=== PATIENT | female | born 2000 | race Caucasian/White ===

== ENCOUNTER → 2023-08-04 08:22 | Outpatient (REF) | payer BC, SELFPAY ==
[2023-08-04 12:14] LABS: % Basophils 1.1 % (0-2); % Immature Granulocytes 0.2 % (0-0.5); % Lymphocytes 21.4 % (20.5-51.1); % Neutrophils 62.3 % (42.2-75.2); Absolute Basophils 0.1 10^3/uL (0-0.2); Absolute Eosinophils 0.2 10^3/uL (0-0.7); Absolute Lymphocytes 1.1 10^3/uL (1.2-3.4); Absolute Monocytes 0.6 10^3/uL (0.1-0.6); Absolute Neutrophils 3.3 10^3/uL (1.4-6.5); Mean Corp Hgb Conc. 32.5 g/dL (33.0-37.0); Mean Corpuscular Hgb 27.5 pg (27.0-31.0); Mean Corpuscular Volume 84.6 fL (81.0-99.0); Nucleated Red Blood Cells % 0 %; Platelet Count 249 10^3/uL (130-400); Red Blood Cell Count 4.73 10^6/uL (4.20-5.40); Red Cell Dist. Width 13.2 % (11.5-14.5); White Blood Cell Count 5.3 10^3/uL (4.8-10.8)
[2023-08-04 12:30] LABS: ALT (SGPT) < 10 U/L (0-35); AST (SGOT) 24 U/L (14-36); Albumin 4.7 g/dl (3.5-5.0); Alkaline Phosphatase 50 U/L (38-126); Blood Urea Nitrogen 9 mg/dl (7-17); Calcium 9.8 mg/dl (8.4-10.2); Carbon Dioxide 23 mmol/L (22-30); Chloride 103 mmol/L (98-107); Glucose 99 mg/dl (70-99); HDL Cholesterol 83 mg/dl; LDL Cholesterol, Calculated 57 mg/dl; Potassium 4.2 mmol/L (3.5-5.1); Sodium 138 mmol/L (135-145); Total Bilirubin 0.5 mg/dl (0.2-1.3); Total Cholesterol 156 mg/dl (50-199); Total Protein 7.4 g/dl (6.3-8.2); Triglyceride 81 mg/dl (10-149); Very Low Density Lipoprotein 16 mg/dl (0-30); eGFR > 60.00
[2023-08-04 13:04] LABS: TSH Reflex To Free T4 1.34 uIU/ml (0.47-4.68)
== END ==
LOC: HWLAB 08:22
PROVIDERS: ATTENDING PHYSICIAN Internal Medicine
DX: Z00.00 Encounter for general adult medical examination without abnormal findings (principal)
CPT/HCPCS: 36415; 80053; 80061; 84443; 85025

== ENCOUNTER → 2024-07-06 06:58 | Outpatient (REF) | payer BC, SELFPAY ==
[2024-07-06 10:08] LABS: % Basophils 2.1 % (0-2); % Eosinophils 4.8 % (0-6); % Immature Granulocytes 0.2 % (0-0.5); % Lymphocytes 33.7 % (20.5-51.1); % Monocytes 5.7 % (1.7-9.3); % Neutrophils 53.5 % (42.2-75.2); Absolute Basophils 0.1 10^3/uL (0-0.2); Absolute Eosinophils 0.2 10^3/uL (0-0.7); Absolute Lymphocytes 1.4 10^3/uL (1.2-3.4); Absolute Monocytes 0.2 10^3/uL (0.1-0.6); Absolute Neutrophils 2.3 10^3/uL (1.4-6.5); Hematocrit 38.2 % (37.0-47.0); Hemoglobin 12.2 g/dL (12.0-16.0); Mean Corp Hgb Conc. 31.9 g/dL (33.0-37.0); Mean Corpuscular Hgb 26.9 pg (27.0-31.0); Mean Corpuscular Volume 84.3 fL (81.0-99.0); Mean Platelet Volume 10.8 fL (7.4-10.4); Nucleated Red Blood Cells % 0 %; Platelet Count 333 10^3/uL (130-400); Red Blood Cell Count 4.53 10^6/uL (4.20-5.40); Red Cell Dist. Width 13.5 % (11.5-14.5); White Blood Cell Count 4.2 10^3/uL (4.8-10.8)
[2024-07-06 10:17] LABS: Erythrocyte Sed Rate 4 mm/hour (0-20)
[2024-07-06 11:09] LABS: ALT (SGPT) 14 U/L (0-35); AST (SGOT) 25 U/L (14-36); Albumin 4.7 g/dl (3.5-5.0); Alkaline Phosphatase 47 U/L (38-126); Blood Urea Nitrogen 7 mg/dl (7-17); Calcium 9.1 mg/dl (8.4-10.2); Carbon Dioxide 27 mmol/L (22-30); Chloride 104 mmol/L (98-107); Glucose 93 mg/dl (70-99); Potassium 4.1 mmol/L (3.5-5.1); Sodium 141 mmol/L (135-145); Total Bilirubin 0.4 mg/dl (0.2-1.3); Total Protein 6.9 g/dl (6.3-8.2); eGFR > 60.00
[2024-07-06 11:58] LABS: C-Reactive Protein < 5.00 mg/L (0.0-10.00)
[2024-07-06 12:16] LABS: Vitamin D, 25-OH*** 20.7 ng/mL (30-80)
[2024-07-06 13:40] LABS: Rheumatoid Agglutinin Less Than 10 IU (<10 IU)
[2024-07-07 19:54] LABS: HLA-B27 Negative (Negative)
[2024-07-07 23:23] LABS: ANA, IgG Reflex to HEp-2 None Detected (None Detected)
[2024-07-08 02:32] LABS: CCP Antibody IgG/IgA 3 Units (0-19)
== END ==
LOC: HWLAB 06:58
PROVIDERS: ATTENDING PHYSICIAN Student in an Organized Health Care Education/Training Program; FAMILY PHYSICIAN Internal Medicine
DX: M25.60 Stiffness of unspecified joint, not elsewhere classified (principal); M54.2 Cervicalgia; M54.50 Low back pain, unspecified; M79.641 Pain in right hand; Z82.61 Family history of arthritis; Z83.79 Family history of other diseases of the digestive system
CPT/HCPCS: 36415; 72040; 72202; 73120; 80053; 82306; 85025; 85652; 86038; 86140; 86200; 86430; 86812

== ENCOUNTER 2025-02-28 09:42 | Emergency (ER) | payer BC, SELFPAY ==
[2025-02-28 09:47] VITALS: BP 123/90
[2025-02-28 10:13] LABS: Hematocrit 36.5 % (37.0-47.0); Hemoglobin 12.2 g/dL (12.0-16.0); Mean Corp Hgb Conc. 33.4 g/dL (33.0-37.0); Mean Corpuscular Volume 79.7 fL (81.0-99.0); Nucleated Red Blood Cells % 0 %; Platelet Count 312 10^3/uL (130-400); Red Cell Dist. Width 13.6 % (11.5-14.5)
[2025-02-28 10:38] LABS: HCG, Serum Qualitative Screen Positive
[2025-02-28 11:02] LABS: ALT (SGPT) 14 U/L (0-35); AST (SGOT) 20 U/L (14-36); Albumin 4.7 g/dl (3.5-5.0); Alkaline Phosphatase 43 U/L (38-126); Blood Urea Nitrogen 4 mg/dl (7-17); Calcium 9.6 mg/dl (8.4-10.2); Carbon Dioxide 24 mmol/L (22-30); Chloride 102 mmol/L (98-107); Glucose 102 mg/dl (70-99); Lipase 170 U/L (23-300); Potassium 3.6 mmol/L (3.5-5.1); Sodium 136 mmol/L (135-145); Total Protein 7.7 g/dl (6.3-8.2); eGFR > 60.00
--- NOTE | 2025-02-28 11:53 | ED.GENMED ---
History of Present Illness
General
Chief Complaint: Abdominal Symptoms
Source: patient
Time Seen by Provider: 02/28/25 11:44
History of Present Illness
History of Present Illness:
24-year-old female presents to the emergency room after being seen at [facility] urgent care for nausea vomiting. Patient has been experiencing nausea vomiting for the past 4 days or so. Symptoms are worse in the morning. Yesterday in particular was
significant. She was able to get much down. This morning she was able to keep down some fluids. She has some upper abdominal discomfort from retching. Patient was found to be at urgent care. This is her first . Patient does
endorse vaping and using medical marijuana. She denies alcohol use. Patient denies any lower abdominal discomfort.
Phy Exam
Physical Exam
Physical Exam:
General: Awake, Alert, Oriented X3. No acute distress.
Vitals: unremarkable
Head: Atraumatic
Eyes: Pupils equal, EOMI
Throat: Airway intact, no exudates, dry mucosa
Neck: Trachea midline
Lungs: Clear and equal b/l
Heart: Regular rate, no murmurs
Abd: Soft, Nontender, No pulsatile mass
Neuro: Nonfocal
Skin: Warm, dry, no rash
Extremities: pulses equal b/l, no edema
Course
Orders/Labs/Results
Orders:
Orders
02/28/25 09:52
Test Result ONCE
02/28/25 10:04
Comprehensive Metabolic Panel Urgent
HCG, Serum Qualitative Screen Urgent
Lipase Urgent
02/28/25 10:05
Beta HCG Quantitative Urgent
Is this a screen?: No
Complete Blood Count/With Diff Urgent
02/28/25 11:50
0.9% Sodium Chloride 1000 ml [Nss] 1,000 ml IV BOLUS
02/28/25 11:52
Electrocardiogram (*1) Urgent
Reason for Study: QTc Monitoring
EKG- Treatment ONCE
Ondansetron Injectable [Zofran] 4 mg IV NOW STA
02/28/25 12:29
Add On- LAB Urgent
Tests Added?: quantitative hcg serum
Abnormal Lab Results
02/28/25 02/28/25
10:04 10:05
Hct 36.5 L %
(37.0-47.0)
MCV 79.7 L fL
(81.0-99.0)
MCH 26.6 L pg
(27.0-31.0)
Absolute Neuts (auto) 7.6 H 10^3/uL
(1.4-6.5)
Neutrophils % 80.0 H %
(42.2-75.2)
Lymphocytes % 12.1 L %
(20.5-51.1)
BUN 4 L mg/dl
(7-17)
Creatinine 0.5 L mg/dL
(0.6-1.0)
Glucose 102 H mg/dl
(70-99)
02/28/25 10:05
02/28/25 10:04
Vital Signs
Initial and Last Documented VS:
Initial Vital Signs
Temp Pulse Resp BP Pulse Ox
98.9 F 89 16 123/90 99
02/28/25 09:47 02/28/25 09:47 02/28/25 09:47 02/28/25 09:47 02/28/25 09:47
Last Documented Vital Signs
Temp Pulse Resp BP Pulse Ox
98.9 F 89 16 123/90 99
02/28/25 09:47 02/28/25 09:47 02/28/25 09:47 02/28/25 09:47 02/28/25 11:56
MDM/Problems Addressed
Differential Diagnosis Includes:
Viral illness, vomiting related to , electrolyte abnormality, dehydration
MDM/Problems Addressed:
Patient presents after having nausea vomiting for this few days. She was sent from urgent care. She received IV fluids here. Her labs show no significant electrolyte abnormality. Her test is confirmed to be positive here. She has no
vaginal bleeding or significant pelvic pain to suggest a acute problem with her . No imaging necessary at this time. Patient stable to follow-up with [facility] as an outpatient. Prescription for Diclegis sent to the pharmacy.
*Pulse Oximetry
SaO2: 99
Oxygen Mode of Delivery: Room air
Patient hypoxic: no
*Critical Care Note
Total Time (30-74mins, 75-104mins- exclusive of procedures): Not Applicable
ED Attending Note
-
Portions of this chart may have been created with voice recognition software.� Occasional wrong word or��sound alike� substitutions may have occurred due to the inherent limitations of voice recognition software.
Discharge Plan
Departure
Patient Disposition: Home (Routine Discharge)
Date of Disposition: 02/28/25
Time of Disposition: 13:18
Patient with high blood pressure during this ER visit?: No
Condition: Good
Discharge Problem:
Nausea & vomiting,
Instructions: Dehydration, Adult (DC), Nausea and Vomiting, Adult (DC)
Prescriptions:
New
ondansetron 4 mg tablet,disintegrating
4 mg PO Q8H PRN (Reason: nausea and vomiting) Qty: 20 0RF
doxylamine-pyridoxine (vit B6) [Diclegis] 10-10 mg tablet,delayed release (DR/EC)
2 tab PO HS Qty: 60 0RF
Discontinued
ondansetron 4 MG tablet,disintegrating
4 mg PO TIDPRN PRN (Reason: nausea/vomiting) Qty: 6 0RF
No Action
norethindrone-e.estradiol-iron [Rosalia Fe 1.5/30 (28)] 1 EACH tablet
1 ea PO DAILY
escitalopram oxalate 20 MG tablet
20 mg PO DAILY
cephalexin 500 mg capsule
500 mg PO BID 5 Days Qty: 10 0RF
Referrals:
Elmer Coy I., DO [Family Provider, Internal Medicine]
Yara Garcia, DO [Active, Gynecology]
Stand Alone Forms: Return to Work
Activity Restrictions/Additional Instructions:
Call [facility] to get a ob appointment. The first line treatment for the nausea of
Interventions
Interventions:
*Risk Screen - Suicide Last Done: 02/28/25 12:33
*General Assessment Last Done: 02/28/25 12:33
*Neglect/Abuse Screening Last Done: 02/28/25 12:33
*ED COVID-19 Vaccine History Last Done: 02/28/25 12:33
*ED Influenza Vaccine History Last Done: 02/28/25 12:33
[facility] Fall Risk Assessment Tool Last Done: 02/28/25 12:33
*Nursing Disposition Last Done: 02/28/25 13:52
HI-Ajaphp-Cruoslrixw Assessment Last Done: 02/28/25 12:33
Discharge Date and Time
Discharge Date/Time: 02/28/25 13:53
Print Language: BAHRAINI
[2025-02-28] MEDS: ZOFRAN 4 MG IV (12:20)
[2025-02-28] MEDS: NSS 1000 IV (12:20)
== END 2025-02-28 13:53 | disposition home or self-care (01) ==
LOC: EMR 09:42
PROVIDERS: EMERGENCY PHYSICIAN Emergency Medicine; FAMILY PHYSICIAN Internal Medicine
DX: O21.9 Vomiting of pregnancy, unspecified (principal); O99.331 Smoking (tobacco) complicating pregnancy, first trimester; Z3A.00 Weeks of gestation of pregnancy not specified; Z79.899 Other long term (current) drug therapy
CPT/HCPCS: 96374; 96361; 99284; 80053; 83690; 84702; 84703; 85025; 93005

== ENCOUNTER 2025-03-05 12:53 | Observation (INO) | payer BC, SELFPAY ==
[2025-03-05 07:38] VITALS: BP 155/78
--- NOTE | 2025-03-05 08:18 | ED.GENMED ---
History of Present Illness
<Ramos Bazzi PA-C - Last Filed: 03/05/25 13:49>
General
Chief Complaint: Problems
Time Seen by Provider: 03/05/25 08:05
History of Present Illness
History of Present Illness:
24-year-old female, G1, P0 currently 6 weeks gestational age, presents to the emergency department for evaluation of intractable vomiting. Was seen here last week for the same symptoms and given Zofran and Diclegis. She states these medications
were helping however she was then advised by her primary care physician to avoid the Zofran due to risk of defects. Had blood-tinged vomitus this morning well. Denies any lower abdominal pain or vaginal discharge/bleeding
Review of Systems
<Ramos Bazzi PA-C - Last Filed: 03/05/25 13:49>
Review of Systems
Allergies reviewed?: Yes
All Other Systems: ROS reviewed and negative except as documented in HPI and ROS
Phy Exam
<Ramos Bazzi PA-C - Last Filed: 03/05/25 13:49>
Physical Exam
Physical Exam:
GEN: Well appearing, NAD, WDWN
HEENT: Oral mucosa moist, no scleral icterus
Cardiac: Regular rate
Lung: No respiratory distress, no tachypnea
MSK: No gross deformity or injuries
Skin: Good color, no pallor or jaundice, no rashes
Neuro: AO x3, moves all extremities freely
Psych: Calm, cooperative
Course
<Ramos Bazzi PA-C - Last Filed: 03/05/25 13:49>
Orders/Labs/Results
Orders:
Orders
03/05/25 08:13
Dextrose 5%/0.45%Sodchl 500 ml [D5/0.45%NaCl] 500 ml IV 500 mls/hr
Lactated Ringers [Lr] 1,000 ml IV BOLUS
03/05/25 08:14
Complete Blood Count/No Diff Urgent
Comprehensive Metabolic Panel Urgent
03/05/25 08:26
Electrocardiogram (*1) Urgent
Reason for Study: Chest Pain
EKG- Treatment ONCE
03/05/25 08:50
Acetaminophen 1000MG/100Ml [Ofirmev] 1,000 mg in 100 ml IV ONCE
Acetaminophen IV Indication:: ED Narcotic Naive Pt-ONCE
03/05/25 08:51
Metoclopramide [Reglan] 10 mg IV NOW STA
CR Chest - 2 Views Urgent
Comment:
Reason For Exam: chest pain/back pain/vomiting
03/05/25 11:59
Pantoprazole [Protonix IV] 40 mg IV NOW STA
03/05/25 12:21
Admit/Transfer Patient As Directed
Co-Sign Provider:
Level of Care: Observation services
Assign to:: Medical/Surgical
Physician / Group: irina
Diagnosis: intractable vomiting
PRN Pain Medication Management As Directed
May give lesser potent ordered pain med per pt: Yes
preference::
Protocol:: Medication orders for pain may be administered in a
manner that supports deferring to patient preference
when the pt is:
- Requesting an ordered lesser potent pain medication.
Least to most potent pain medications are defined
as: acetaminophen < NSAID < tramadol < opioids
(morphine, oxycodone, hydromorphone).
- Requesting a lesser dose of the same medication IF
ORDERED.
- Requesting a less intrusive route of administration
if both routes are prescribed by the provider (PO <
IV).
03/05/25 12:22
Code Status As Directed
Resuscitation Status: Full Code
03/05/25 12:26
Consult COMMERCIAL COLLECTIONS SPECIALIST [COMMERCIAL COLLECTIONS SPECIALIST CONSULT] Routine
Consulting Provider: Ya Hassan
Was physician already notified: Yes
03/05/25 12:30
US Pelvis W Transvag Combined Urgent
Comment:
Reason For Exam: verify Viability
03/05/25 12:49
Echo 2D MMode Color/Doppler Routine
Reason for Study: heart murmur
Abnormal Lab Results
03/05/25
08:14
WBC 11.1 H 10^3/uL
(4.8-10.8)
MCV 80.9 L fL
(81.0-99.0)
MPV 10.8 H fL
(7.4-10.4)
Glucose 117 H mg/dl
(70-99)
Total Protein 8.3 H g/dl
(6.3-8.2)
Albumin 5.1 H g/dl
(3.5-5.0)
03/05/25 08:14
03/05/25 08:14
Vital Signs
Initial and Last Documented VS:
Initial Vital Signs
Temp Pulse Resp BP Pulse Ox
98 F 79 16 155/78 98
03/05/25 07:38 03/05/25 07:38 03/05/25 07:38 03/05/25 07:38 03/05/25 07:38
Last Documented Vital Signs
Temp Pulse Resp BP Pulse Ox
98 F 89 16 128/88 99
03/05/25 07:38 03/05/25 12:00 03/05/25 12:00 03/05/25 12:00 03/05/25 12:00
Information
Weeks gestation: Weeks: (6)
Location: N/A
<Trae Jordan MD - Last Filed: 03/05/25 12:56>
Orders/Labs/Results
Orders:
Orders
03/05/25 08:13
Dextrose 5%/0.45%Sodchl 500 ml [D5/0.45%NaCl] 500 ml IV 500 mls/hr
Lactated Ringers [Lr] 1,000 ml IV BOLUS
03/05/25 08:14
Complete Blood Count/No Diff Urgent
Comprehensive Metabolic Panel Urgent
03/05/25 08:26
Electrocardiogram (*1) Urgent
Reason for Study: Chest Pain
EKG- Treatment ONCE
03/05/25 08:50
Acetaminophen 1000MG/100Ml [Ofirmev] 1,000 mg in 100 ml IV ONCE
Acetaminophen IV Indication:: ED Narcotic Naive Pt-ONCE
03/05/25 08:51
Metoclopramide [Reglan] 10 mg IV NOW STA
CR Chest - 2 Views Urgent
Comment:
Reason For Exam: chest pain/back pain/vomiting
03/05/25 11:59
Pantoprazole [Protonix IV] 40 mg IV NOW STA
03/05/25 12:21
Admit/Transfer Patient As Directed
Co-Sign Provider:
Level of Care: Observation services
Assign to:: Medical/Surgical
Physician / Group: irina
Diagnosis: intractable vomiting
PRN Pain Medication Management As Directed
May give lesser potent ordered pain med per pt: Yes
preference::
Protocol:: Medication orders for pain may be administered in a
manner that supports deferring to patient preference
when the pt is:
- Requesting an ordered lesser potent pain medication.
Least to most potent pain medications are defined
as: acetaminophen < NSAID < tramadol < opioids
(morphine, oxycodone, hydromorphone).
- Requesting a lesser dose of the same medication IF
ORDERED.
- Requesting a less intrusive route of administration
if both routes are prescribed by the provider (PO <
IV).
03/05/25 12:22
Code Status As Directed
Resuscitation Status: Full Code
03/05/25 12:26
Consult COMMERCIAL COLLECTIONS SPECIALIST [COMMERCIAL COLLECTIONS SPECIALIST CONSULT] Routine
Consulting Provider: Ya Hassan
Was physician already notified: Yes
03/05/25 12:30
US Pelvis W Transvag Combined Urgent
Comment:
Reason For Exam: verify Viability
03/05/25 12:49
Echo 2D MMode Color/Doppler Routine
Reason for Study: heart murmur
Abnormal Lab Results
03/05/25
08:14
WBC 11.1 H 10^3/uL
(4.8-10.8)
MCV 80.9 L fL
(81.0-99.0)
MPV 10.8 H fL
(7.4-10.4)
Glucose 117 H mg/dl
(70-99)
Total Protein 8.3 H g/dl
(6.3-8.2)
Albumin 5.1 H g/dl
(3.5-5.0)
03/05/25 08:14
03/05/25 08:14
Vital Signs
Initial and Last Documented VS:
Initial Vital Signs
Temp Pulse Resp BP Pulse Ox
98 F 79 16 155/78 98
03/05/25 07:38 03/05/25 07:38 03/05/25 07:38 03/05/25 07:38 03/05/25 07:38
Last Documented Vital Signs
Temp Pulse Resp BP Pulse Ox
98 F 89 16 128/88 99
03/05/25 07:38 03/05/25 12:00 03/05/25 12:00 03/05/25 12:00 03/05/25 12:00
<Ramos Bazzi PA-C - Last Filed: 03/05/25 13:49>
MDM/Problems Addressed
MDM/Problems Addressed:
Concerning the patient has blood-tinged emesis and persistent chest and upper back pain after drinking, and this suggest a possible esophageal injury. She has no pneumomediastinum noted on chest x-ray concerning for esophageal rupture. Given this
finding and her persistent nausea and difficulty tolerating p.o. we will admit for continued IV hydration
<Ramos Bazzi PA-C - Last Filed: 03/05/25 13:49>
*Pulse Oximetry
SaO2: 98
Oxygen Mode of Delivery: Room air
Patient hypoxic: no
*Critical Care Note
Total Time (30-74mins, 75-104mins- exclusive of procedures): Not Applicable
ED Attending Note
<Ramos Bazzi PA-C - Last Filed: 03/05/25 13:49>
-
Portions of this chart may have been created with voice recognition software.� Occasional wrong word or��sound alike� substitutions may have occurred due to the inherent limitations of voice recognition software.
<Trae Jordan MD - Last Filed: 03/05/25 12:56>
ED Attending Note
Patient seen and examined by attending physician: Yes
ED Attending Note:
I have seen and evaluated the patient with a [id number] encounter. I have spoken to the advance practicer provider and involved in the medical history, the physical exam, medical decision making.
Evaluation and management service: agree unless noted differently below.
Results interpretation: agree unless noted differently below.
Focused HPI: 24-year-old female with history as noted who is currently 6 weeks G1, P0 presents for evaluation of nausea and vomiting, chest pain. Patient reports that she has been vomiting for the past week and that it has been unremitting
and she has had difficulty tolerating p.o. fluids or food. She says she started to develop some central chest pain. They had some scant hematemesis. Mild pain in the epigastrium. Came to the ER for assessment. She is [facility] see [facility] but her initial appointment is not until March. No vaginal bleeding or discharge or any other complaints noted.
Physical exam: Awake and alert, not in distress during my assessment. Hypertensive but otherwise normal vitals. Abdomen soft, minimally tender in the epigastrium. Mucous membranes slightly dry.
Medical Decision Makin-year-old female presents with nausea and vomiting in early �started to develop some chest pain and scant hematemesis likely Meenu-Marroquin tear. Labs here are significant for normal hemoglobin, chemistry no
clinically significant abnormalities. Chest x-ray no pneumomediastinum or other acute abnormalities. Her EKG shows sinus rhythm. Plan to admit for continued management of hyperemesis gravidarum. Ultrasound to confirm IUP. DAYNA discussed with
hospitalist for admission.
Discharge Plan
Departure
Patient Disposition: Admit
Date of Disposition: 03/05/25
Time of Disposition: 12:00
Admit to: Med/Surg
Presentation/result/management discussed w/ accepting MD/DO: Hospitalist
Discharge Problem:
Hyperemesis gravidarum, Suspected Meenu-Marroquin tear
Interventions
Interventions:
*Risk Screen - Suicide Last Done: 03/05/25 07:39
*General Assessment Last Done: 03/05/25 08:00
*Neglect/Abuse Screening Last Done: 03/05/25 07:39
*ED COVID-19 Vaccine History Last Done: 03/05/25 08:00
*ED Influenza Vaccine History Last Done: 03/05/25 08:00
[facility] Fall Risk Assessment Tool Last Done: 03/05/25 07:32
[2025-03-05] MEDS: D5/0.45%NACL 500 IV (08:19)
[2025-03-05 08:22] LABS: Hematocrit 41.9 % (37.0-47.0); Hemoglobin 14.2 g/dL (12.0-16.0); Mean Corp Hgb Conc. 33.9 g/dL (33.0-37.0); Mean Corpuscular Volume 80.9 fL (81.0-99.0); Platelet Count 367 10^3/uL (130-400); Red Cell Dist. Width 13.3 % (11.5-14.5)
[2025-03-05 08:38] LABS: ALT (SGPT) 16 U/L (0-35); AST (SGOT) 24 U/L (14-36); Albumin 5.1 g/dl (3.5-5.0); Alkaline Phosphatase 48 U/L (38-126); Blood Urea Nitrogen 7 mg/dl (7-17); Calcium 9.8 mg/dl (8.4-10.2); Carbon Dioxide 24 mmol/L (22-30); Chloride 101 mmol/L (98-107); Glucose 117 mg/dl (70-99); Potassium 3.9 mmol/L (3.5-5.1); Sodium 137 mmol/L (135-145); Total Protein 8.3 g/dl (6.3-8.2); eGFR > 60.00
[2025-03-05] MEDS: REGLAN 10 MG IV (08:56)
[2025-03-05] MEDS: OFIRMEV 100 IV (08:56)
[2025-03-05] MEDS: LR 1000 IV (08:57)
[2025-03-05 12:00] VITALS: BP 128/88
--- NOTE | 2025-03-05 12:05 | HPS.HSE ---
Family Physician
-
Family Physician: * NONE
Chief Complaint
-
Intractable vomiting
History of Present Illness
24-year-old female, G1, P0 currently 6 weeks gestational age,depression. anxiety presents to the emergency department for evaluation of intractable vomiting for past one and half weeks. patient not able to tolerate any oral intake. she stooped
taking her antidepressant as soon as she found that she was . she is complaining of upper abdominal discomfort and mid sternum pain.denied NEGRETE, dizzy, fever. she has chills and feels feverish. denied sob. denied dysuria or hematuria. Was
seen here last week for the same symptoms and given Zofran and Diclegis. sh was sent home on Diclegis. she took Diclegis until Wednesday. She states these medications were helping however she was then advised by her primary care physician to avoid the
Zofran due to risk of defects. Had blood-tinged vomitus this morning well. Denies any lower abdominal pain or vaginal discharge/bleeding.
Patient received Tylenol, D5 NS, LR, Reglan, Protonix in the ER. Admitted for further management
Medical History
Past Medical History
Past Medical History: Reports Other
Additional Past Medical History:
Depression, heart murmur, anxiety
Past Surgical History: Reports Other
Additional Past Surgical History:
Flushing teeth extraction, myringotomy with tubes
Social History
Tobacco: Vaping
Alcohol: None
Drug: Marijuana
Personal: Single
Living: With Family
Family History
Family History: Not pertinent
Allergies / Home Medications
Allergies reflects when Allergies were last updated in [facility].
Home Medications with original date entered in [facility]
Allergy/Medication List:
Allergies
Allergy/AdvReac Type Severity Reaction Status Date / Time
No Known Allergies Allergy Unverified 02/28/25 09:46
Home Medications
doxylamine 10 mg-pyridoxine (vit B6) 10 mg tablet,delayed release (Diclegis) 2 tab PO HS #60 tabs 02/28/25
bupropion HCl 150 mg 24 hr tablet, extended release 150 mg PO DAILY 03/05/25
fluoxetine 40 mg capsule 40 mg PO DAILY 03/05/25
methylphenidate HCl 27 mg tablet,extended release 24 hr 27 mg PO DAILY 03/05/25
ondansetron 4 mg disintegrating tablet 4 mg PO Q8H PRN nausea 03/05/25
Review of Systems
-
Constitutional: Reports No Symptoms
EENT: Reports No Symptoms
Respiratory: Reports No Symptoms
Cardiac: Reports No Symptoms
Abdomen/GI: Reports Abdominal Pain, Nausea and Vomiting
: Reports No Symptoms
Musculoskeletal: Reports No Symptoms
Skin: Reports No Symptoms
Neurological: Reports No Symptoms
Endocrine: Reports No Symptoms
Hematologic/Lymphatic: Reports No Symptoms
Psych: Reports No Symptoms
Physical Exam
Vital Signs
Vital Signs
Temp Pulse Resp BP Pulse Ox
98 F 79 16 155/78 98
03/05/25 07:38 03/05/25 07:38 03/05/25 07:38 03/05/25 07:38 03/05/25 08:19
Physical Exam
General: Well Developed, Well Nourished and No Apparent Distress
HEENT: NormoCephalic, Moist mucous membranes and Atraumatic
Respiratory: Clear
Cardiac: S1/S2 and Regular Rhythm; No Murmur or Rub
GI: Soft, Non Tender, Non Distended and Normal Bowel Sounds; No Organomegaly
Rectal: Deferred by Provider
Musculoskeletal: No Clubbing, No Cyanosis and No Edema
Skin: No Rash
Neuro: AO x 3 and Nonfocal/grossly intact
Psych: Calm
Laboratory Results
-
03/05/25 08:14
03/05/25 08:14
Laboratory Results
Total Bilirubin 0.6 mg/dl (0.2-1.3) 03/05/25 08:14
AST 24 U/L (14-36) 03/05/25 08:14
ALT 16 U/L (0-35) 03/05/25 08:14
Alkaline Phosphatase 48 U/L (38-126) 03/05/25 08:14
Data Reviewed
-
Lab Data: Labs Reviewed by me
Impression/Plan
-
# Intractable vomiting concern for Meenu-Marroquin tear
# 6 weeks
-OB consulted
-US of pelvis ordered
# Leukocytosis likely reactive
- WBCs 11.1, patient is afebrile
- Continue to monitor
#hxt of heart murmur
-obtain ECHO
#prolonged QTC
-recheck QTC
-held antiemetics due to prolonged QTC
#depression/anxiety
-not taking medication due to
-
#DVT prophylaxis
-scd
#CODE status
-full code
[2025-03-05] MEDS: PROTONIX IV 40 MG IV (12:51)
--- NOTE | 2025-03-05 13:01 | CON.GI ---
Addendum entered and electronically signed by Yvette Lock DO 03/05/25 14:54:
The patient was seen and examined by me independently in collaboration with the nurse practitioner.
Past medical history/social history/medications/allergies/family history reviewed.
Lab data and imaging data reviewed.
Margaret Richey is a 24 y.o. female who is 6 weeks admitted with persistent nausea and vomiting with reports of small amounts of bloody emesis. On exam, found to have a heart murmur, ECHO completed, read pending. Her hemoglobin is 14.2, last
hgb was 12.2 on 02/28/25. She admits to daily marijuana use but stopped when she found out she was . She was given diclegis but stopped.
Suspect some esophagitis vs. ulcer vs. MWT vs. other-- given hemodynamic stability and stable hemoglobin (likely some component of hemoconcentration) taking into account she is in the first trimester of her , I recommend holding off on EGD
at this time.
-IVF
-antiemetics
-PPI
-trend H&H
Original Note:
Consultation
-
Date/Time Consultation Requested: 03/05/25 1220
Date/Time Consultation Performed: 03/05/25 1300
Requesting Provider: Ramos Bazzi PA-C
Performing Provider: DESTINY Alicia, Maxine Lock DO
Reason for Consultation: nausea/vomiting/hematemesis
Medical History
Chief Complaint / HPI
History of Present Illness:
Pt is a 24yo with hx depression/anxiety, PTSD, prior note murmur and currently 6 weeks with intractable nausea and vomiting and presents to ER for evaluation. She was noted with blood tinged emesis and asked to see for evaluation. On
admission noted with WBC 11,100. She is also noted with prolonged QT 464 and murmur and due for echo. In review with patient she admits to onset of GI symptoms around 02/23. She found out about the around 02/28. She was given Diclegis
but stopped. She states she had been struggling with nausea and vomiting symptoms. She attempted to to eat rice and initially vomited rice and bile then noted about 2 teaspoon of blood without recurrence. She also admits to constant upper
abdominal pain with nausea symptoms without recent NSAID use and constipation as she has been eating less. Prior to she was using Nicotine and Marijuana daily with hx PTSD and did stop last week. She otherwise denies odynophagia,
dysphagia,diarrhea or rectal bleeding. She denies any chronic GI issues. No hx EGD or colonoscopy in past. She has not seen FOOD QUALITY TECHNICIAN yet as due to March for first visit.
Past Medical History
Past Medical History: Psychiatric (depression/anxiety, PTSD ) and Other (murmur)
Past Surgical History: Other ([place] teeth extraction, myringotomy with tubes )
Social History
Tobacco: Vaping
Alcohol: None
Drug: Marijuana
Personal: Other (boyfriend in [employer] )
Living: With Family
Employment: Employed
Family History
Family History: Other (father with crohn disease )
Allergies / Home Medications
Allergy/AdvReac Type Severity Reaction Status Date / Time
No Known Allergies Allergy Unverified 02/28/25 09:46
�Medication �Instructions �Recorded
doxylamine 10 mg-pyridoxine (vit 2 tab PO HS #60 tabs 02/28/25
B6) 10 mg tablet,delayed release
(Diclegis)
bupropion HCl 150 mg 24 hr tablet, 150 mg PO DAILY 03/05/25
extended release
fluoxetine 40 mg capsule 40 mg PO DAILY 03/05/25
methylphenidate HCl 27 mg 27 mg PO DAILY 03/05/25
tablet,extended release 24 hr
ondansetron 4 mg disintegrating 4 mg PO Q8H PRN nausea 03/05/25
tablet
Review of Systems
-
History Source: Patient
Constitutional: Reports Fever (t max 99 ) and Weight Loss (few lb with vomiting)
EENT: Reports No Symptoms
Respiratory: Reports No Symptoms
Cardiac: Reports No Symptoms
Abdomen/GI: Reports Abdominal Pain, Nausea, Vomiting and Constipated (with eating less )
: Reports No Symptoms
Musculoskeletal: Reports No Symptoms
Skin: Reports No Symptoms
Neurological: Reports No Symptoms
Endocrine: Reports No Symptoms
Hematologic/Lymphatic: Reports Bleeding (small amount hematemesis )
Vital Signs
Temp Pulse Resp BP Pulse Ox
98 F 79 16 155/78 98
03/05/25 07:38 03/05/25 07:38 03/05/25 07:38 03/05/25 07:38 03/05/25 08:19
Physical Exam
Exam
General: Well Developed, Well Nourished and No Apparent Distress
HEENT: Normocephalic and Anicteric
Respiratory: Clear
Cardiac: Regular Rhythm and Murmur
GI: Soft, Non Distended and Tender (minimal no guarding or rebound )
Musculoskeletal: No Clubbing and No Cyanosis
Skin: Warm and Dry
Neuro: Awake, Alert and AO x 3
Psych: Calm
Results
WBC 11.1 10^3/uL (4.8-10.8) H 03/05/25 08:14
Hgb 14.2 g/dL (12.0-16.0) 03/05/25 08:14
Hct 41.9 % (37.0-47.0) 03/05/25 08:14
MCV 80.9 fL (81.0-99.0) L 03/05/25 08:14
Plt Count 367 10^3/uL (130-400) 03/05/25 08:14
Sodium 137 mmol/L (135-145) 03/05/25 08:14
Potassium 3.9 mmol/L (3.5-5.1) 03/05/25 08:14
Chloride 101 mmol/L (98-107) 03/05/25 08:14
Carbon Dioxide 24 mmol/L (22-30) 03/05/25 08:14
BUN 7 mg/dl (7-17) 03/05/25 08:14
Creatinine 0.6 mg/dL (0.6-1.0) 03/05/25 08:14
Calcium 9.8 mg/dl (8.4-10.2) 03/05/25 08:14
Total Bilirubin 0.6 mg/dl (0.2-1.3) 03/05/25 08:14
AST 24 U/L (14-36) 03/05/25 08:14
ALT 16 U/L (0-35) 03/05/25 08:14
Alkaline Phosphatase 48 U/L (38-126) 03/05/25 08:14
Diagnostic Image Results:
03/05 CXR pending
Prior GI Procedures:
EGD: none
Colonoscopy: none
Assessment / Plan
-
Pt is a 24yo with hx depression/anxiety, PTSD, prior note murmur and currently 6 weeks with intractable nausea and vomiting and presents to ER for evaluation. She was noted with blood tinged emesis and asked to see for evaluation. On
admission noted with WBC 11,100. She is also noted with prolonged QT 464 and murmur and due for echo. In review with patient she admits to onset of GI symptoms around 02/23. She found out about the around 02/28. She was given Diclegis
but stopped. She states she had been struggling with nausea and vomiting symptoms. She attempted to to eat rice and initially vomited rice and bile then noted about 2 teaspoon of blood without recurrence. She also admits to constant upper
abdominal pain with nausea symptoms without recent NSAID use and constipation as she has been eating less. Prior to she was using Nicotine and Marijuana daily with hx PTSD and did stop last week. She otherwise denies odynophagia,
dysphagia,diarrhea or rectal bleeding. She denies any chronic GI issues. No hx EGD or colonoscopy in past. She has not seen FO[facility] QUALITY TECHNICIAN yet as due to March for first visit.
-intractable nausea and vomiting with concern for hyperemesis gravidarum and recent daily Marijuana use
-6 weeks
-concern for hematemesis with passing very small amount of blood with vomiting
-leukocytosis
-murmur on exam with hx murmur in past
-prolonged QT
-constiaption with eating less prior to admission
other med problems:
-anxiety/depression, hx PTSD
PLAN:
Etiology of hematemesis related to MW tear with recurrent vomiting vs other
hbg stable 14.2 with no recurrent symptoms
hold on EGD for now unless recurrent symptoms
await [facility]AL[facility] TECHNICIAN input for treatment of recurrent vomiting - pt has tried Diclegis prior to admission and given protonix and Reglan in AM
for echo with noted murmur
s/p IVF given in ER
discussed Marijuana abstinence with patient and she already stopped last week
ok for clear diet as tolerated and advance as able
-
-
Thank you for consultation and allowing me to participate in the patient's care. Please call the onboarding specialist GI physician during the after hours with any questions or concerns.
--- NOTE | 2025-03-05 14:48 | CON.MD ---
CC / HPI / ROS
-
Chief Complaint:
nausea and vomiting.
History of Present Illness:
Margaret is a 24 yo at 6w5d (LMP 01/17/25) presenting for nausea/vomiting. She states she has had nausea and vomiting for the past 9 days. This was not a planned , but she is excited. Denies significant medical or surgical history. Denies
significant weight loss and anuria. She was rx diclegis, but was unsure about taking due to potential risk to fetus. She also self discontinued her anti-depressant/anti-anxiety medications (Prozac, Bupropion, and methylphenidate).
Review of Systems:
+ N/V
-Abd pain
Current/Past Med/Surg History
-
Respiratory: No Issues Reported
Vascular / Heart: No Issues Reported
Neurological / Brain / Spinal Cord: No Issues Reported
Gastrointestinal/Bowel/Digestive: No Issues Reported
Musculoskeletal: No Issues Reported
Endocrine: No Issues Reported
Blood: No Issues Reported
Psychiatric: Anxiety and Depression
Skin: No Issues Reported
Urinary/Reproductive: No Issues Reported
Ears/Nose/Throat: No Issues Reported
Operations / Procedures
Issues with Anesthesia: No
Past Surgical History: None
Medications / Supplements
Medication / Herbal Supplements: Yes
�Medication �Instructions �Recorded
doxylamine 10 mg-pyridoxine (vit 2 tab PO HS #60 tabs 02/28/25
B6) 10 mg tablet,delayed release
(Diclegis)
bupropion HCl 150 mg 24 hr tablet, 150 mg PO DAILY 03/05/25
extended release
fluoxetine 40 mg capsule 40 mg PO DAILY 03/05/25
methylphenidate HCl 27 mg 27 mg PO DAILY 03/05/25
tablet,extended release 24 hr
ondansetron 4 mg disintegrating 4 mg PO Q8H PRN nausea 03/05/25
tablet
Allergies
Allergies: No
Allergy/AdvReac Type Severity Reaction Status Date / Time
No Known Allergies Allergy Unverified 02/28/25 09:46
Vital Signs / Labs
-
Vital Signs and Labs:
Temp Pulse Resp BP Pulse Ox
98 F 89 16 128/88 99
03/05/25 07:38 03/05/25 12:00 03/05/25 12:00 03/05/25 12:00 03/05/25 12:00
03/05/25 08:14
03/05/25 08:14
03/05/25
08:14
WBC 11.1 H
MCV 80.9 L
MPV 10.8 H
Glucose 117 H
Total Protein 8.3 H
Albumin 5.1 H
Imaging Data
-
Pelvic US pending
Physical Exam
-
General: No Acute Distress
HEENT: Grossly Normal
Cardiovascular: Regular rate & rhythm
Abdomen: Soft, Non-Tender and No Guarding
Neurological: AOx3
Skin: Warm and Dry
Assessemnt/Plan
-
Assessment: Margaret is a 24 yo at 6w5d presenting with N/V.
Plan:
-Patient admitted for IV hydration and mgmt of N/V.
-IV fluids
-Antiemetics: recommend diclegis for maintenance, prn zofran, reglan, & phenergan if qTC not prolonged
-Pelvic US to confirm viability
-Recommend restarting prozac and bupropion and following up with therapist/psychiatrist.
-F/u with [facility] office on discharge.
--- NOTE | 2025-03-05 14:55 | CM ---
Chart reviewed and spoke with pt at ED bedside
Lives in [address] with parents
Independent with ADLs and ambulation
no DME
PCP [facility] [address]
no hx of VN nor SNF
DC is to home no needs
Cm will continue to follow up for dcp needs
[2025-03-05 15:55] VITALS: BP 114/50
[2025-03-05] MEDS: NSS 1000 IV (16:20)
[2025-03-05 16:32] LABS: HCG, Urine Qualitative Screen Positive
--- NOTE | 2025-03-05 16:45 | PTCARENOTE ---
Pt admitted into 1145 from ED; AOx3, assessment as documented, pt reports feling much better, no nausea or pain. Pt and parents oriented to room, call collado within reach.
--- NOTE | 2025-03-05 18:02 | W.PN.UPDATE ---
Update Note
Progress Note Update
Attending note
Patient seen independently
initial presentation
24-year-old woman, G1, P0 currently 6 weeks , comes in with intractable vomiting for past one and half weeks.Had blood-tinged vomitus this morning well. Denies any lower abdominal pain or vaginal discharge/bleeding. Patient received
Tylenol, D5 NS, LR, Reglan, Protonix in the ER. GI and OBGYN consulted.
Past Medical History
Depression,
heart murmur,
anxiety
[place] teeth extraction,
myringotomy with tubes
Physical Exam
General: Well Developed, Well Nourished and No Apparent Distress
HEENT: NormoCephalic, Moist mucous membranes and Atraumatic
Respiratory: Clear
Cardiac: S1/S2 and Regular Rhythm; +Murmur
GI: Soft, Non Tender, Non Distended and Normal Bowel Sounds; No Organomegaly
Musc.: No Clubbing, No Cyanosis and No Edema
Psych: Calm
A/P:
1. Intractable vomiting with initial concern for Meenu-Marroquin tear
-OB consulted
-US of pelvis ordered
Leukocytosis likely reactive
2. Heart murmur heard on exam
-obtain ECHO
3. Mildly prolonged QTC
OBGYN to recommned appropriate antiemetics
DVT prophylaxis - scd
CODE status - full code
[2025-03-05] MEDS: VITAMIN B-6 PO (18:20)
--- NOTE | 2025-03-05 21:48 | PTCARENOTE ---
Patient taken to US
[2025-03-05 23:10] VITALS: BP 116/71
[2025-03-06] MEDS: NSS 1000 IV (04:43)
[2025-03-06 07:46] LABS: Blood Urea Nitrogen 4 mg/dl (7-17); Calcium 9.0 mg/dl (8.4-10.2); Carbon Dioxide 20 mmol/L (22-30); Chloride 104 mmol/L (98-107); Estimated Creatinine Clearance 111 ml/min; Glucose 80 mg/dl (70-99); Potassium 3.5 mmol/L (3.5-5.1); Sodium 135 mmol/L (135-145); eGFR > 60.00
[2025-03-06 07:59] LABS: Hematocrit 35.0 % (37.0-47.0); Hemoglobin 11.7 g/dL (12.0-16.0); Mean Corp Hgb Conc. 33.4 g/dL (33.0-37.0); Mean Corpuscular Volume 80.8 fL (81.0-99.0); Red Cell Dist. Width 13.3 % (11.5-14.5)
[2025-03-06 08:12] VITALS: BP 121/70
[2025-03-06] MEDS: PROZAC 40 MG PO (08:13)
[2025-03-06] MEDS: WELLBUTRIN XL (24 hour extended release) 150 MG PO (08:14)
[2025-03-06] MEDS: VITAMIN B-6 50 MG PO (08:14)
[2025-03-06] MEDS: ZOFRAN 4 MG IV (08:14)
[2025-03-06] MEDS: PROTONIX IV 40 MG IV (08:14)
[2025-03-06] MEDS: NSS (PRESERVATIVE FREE) 10 ML IV (08:14)
[2025-03-06 08:57] LABS: Platelet Count 269 10^3/uL (130-400)
[2025-03-06 10:18] LABS: Urine Character Clear (Clear)
[2025-03-06] MEDS: THIAMINE INJECTION 100 MG IV (11:00)
--- NOTE | 2025-03-06 11:12 | CM ---
Patient seen at bedside in 1 acute. Patient screen for depression, consult for CM. Patient indicated that she has no current needs but agreed that CM would provide resources for patient to review. CM will continue to follow for discharge planning
needs.
Plan; home with no needs
[2025-03-06 11:20] LABS: Urine Squamous Cell >30 /LPF (Few)
[2025-03-06 12:41] LABS: Magnesium 1.8 mg/dl (1.6-2.3)
[2025-03-06] MEDS: KCL 270 MEQ IV (12:49)
--- NOTE | 2025-03-06 13:01 | W.PN.UPDATE ---
Documented by User: Delvin Broderick MD, Resident 03/06/25 13:13
Update Note
Progress Note Update
Subjective:
patient awake, conversant, eating belizean fries. Has no acute complaints, is feeling much better, has not had any new vomiting overnight. last dose prn zofran 8:14 AM.
Objective:
AFVSS
Gen: NAD
HEENT: moist mucous memebranes
Assessment:
24 yo at 6w6d (LMP 01/17/25) who presented with 9d of intractable nausea/vomiting, found to be
#Hyperemesis Gravidum
#Hematemesis
#Anxiety/Depression
#ADHD
#Hypokalemia
#QTC prolongation, secondary to antiemetics/SSRIs
Plan:
- pt back on her home dose bupropion/fluoxetine -- abrupt discontinuation likely contributing to presenting sx
- pt tolerating PO solids/liquids w/o issue
- US independently evaluated, small subchorionic hematoma, but otherwise showing viable intrauterine
- continue Diclegis
- maintain oral hydration, sipping liquids through straw, anti-nausea bracelet, small meals
- pt has appt scheduled for follow up with [facility]
- can d/c from OB standpoint, rest of care per primary team

Documented by User: Douglas Woo MD 03/06/25 14:31
Update Note
Progress Note Update
Subjective:
patient awake, conversant, eating belizean fries. Has no acute complaints, is feeling much better, has not had any new vomiting overnight. last dose prn zofran 8:14 AM. Denies vaginal bleeding, feels much better.
Objective:
AFVSS
Gen: NAD
HEENT: moist mucous membranes
Assessment:
24 yo at 6w6d (LMP 01/17/25) who presented with 9d of intractable nausea/vomiting, found to be
#Hyperemesis Gravidum
#Hematemesis
#Anxiety/Depression
#ADHD
#Hypokalemia
#QTC prolongation, secondary to antiemetics/SSRIs
Plan:
- pt back on her home dose bupropion/fluoxetine -- abrupt discontinuation likely contributing to presenting sx
- pt tolerating PO solids/liquids w/o issue
- US independently evaluated, small subchorionic hematoma, but otherwise showing viable intrauterine
- continue Diclegis
- maintain oral hydration, sipping liquids through straw, anti-nausea bracelet, small meals
- pt has appt scheduled for follow up with [facility]
- can d/c from OB standpoint, rest of care per primary team
-pelvic rest until OB visit and next ultrasound in 2 weeks
--- NOTE | 2025-03-06 14:38 | W.PN.GI.CBS2 ---
Addendum entered and electronically signed by Elmer Lara MD 03/06/25 16:00:
I saw and examined the patient.
The ANIMATOR or PA's note was reviewed and I agree with the note.
Comment: No further vomiting. Feels well. No nausea. Denies heartburn
REC:
OK for d/c
D/c pantoprazole since not having heartburn
Drop in Hgb likely dilutional. No signs of bleeding currently
Original Note:
Today's Communication / Plan
-
Etiology of hematemesis related to MW tear with recurrent vomiting vs other
hbg some drop but likely dilution with hydration of 2.5 liter given on admission, no signs of active bleeding
hold on EGD as no recurrent vomiting or hematemesis
with marked improving symptoms and no further vomiting hold Protonix
now tolerating some diet -- discussed diet with small portion, plenty of non caffeinated beverages
continued Marijuana abstinence
for [facility] [facility] [employer] follow up for review with US with small subchorionic hematoma
return for any recurrent issues
laxative PRN for constipation if continues
Assessment / Plan
-
Pt is a 24yo with hx depression/anxiety, PTSD, prior note murmur and currently 6 weeks with intractable nausea and vomiting and presents to ER for evaluation. She was noted with blood tinged emesis and asked to see for evaluation. On
admission noted with WBC 11,100. She is also noted with prolonged QT 464 and murmur and due for echo. In review with patient she admits to onset of GI symptoms around 02/23. She found out about the around 02/28. She was given Diclegis
but stopped. She states she had been struggling with nausea and vomiting symptoms. She attempted to to eat rice and initially vomited rice and bile then noted about 2 teaspoon of blood without recurrence. She also admits to constant upper
abdominal pain with nausea symptoms without recent NSAID use and constipation as she has been eating less. Prior to she was using Nicotine and Marijuana daily with hx PTSD and did stop last week. She otherwise denies odynophagia,
dysphagia,diarrhea or rectal bleeding. She denies any chronic GI issues. No hx EGD or colonoscopy in past. She has not seen [facility] yet as due to March for first visit.
03/05/25 US 1st Trimester
Single, viable intrauterine with estimated gestational age of 6 week 4 day. heart rate: 106 BPM. Small subchorionic hematoma.
-intractable nausea and vomiting with concern for hyperemesis gravidarum and recent daily Marijuana use
-6 weeks
-US with small subchorionic hematoma.
-concern for hematemesis with passing very small amount of blood with vomiting
-leukocytosis
-murmur on exam with hx murmur in past
-prolonged QT
-constipation with eating less prior to admission
other med problems:
-anxiety/depression, hx PTSD
PLAN:
Etiology of hematemesis related to MW tear with recurrent vomiting vs other
hbg some drop but likely dilution with hydration of 2.5 liter given on admission, no signs of active bleeding
hold on EGD as no recurrent vomiting or hematemesis
with marked improving symptoms and no further vomiting hold Protonix
now tolerating some diet -- discussed diet with small portion, plenty of non caffeinated beverages
continued Marijuana abstinence
for [employer] follow up for review with US with small subchorionic hematoma
return for any recurrent issues
laxative PRN for constipation if continues
Subjective
Subjective
Date of Service: March 06, 2025
no further vomiting or hematemesis, feeling much better with IVF, abdominal pain with some improving and tolerating some diet
Objective
Data Reviewed
Laboratory Data:
Laboratory Results
03/06/25 07:07
03/06/25 07:07
Laboratory Results
Magnesium Cancelled 03/06/25 11:59
Total Bilirubin 0.6 mg/dl (0.2-1.3) 03/05/25 08:14
AST 24 U/L (14-36) 03/05/25 08:14
ALT 16 U/L (0-35) 03/05/25 08:14
Alkaline Phosphatase 48 U/L (38-126) 03/05/25 08:14
Vital Signs and I&O:
Vital Signs
Temp Pulse Resp BP Pulse Ox
98.0 F 96 16 121/70 98
03/06/25 08:12 03/06/25 08:12 03/06/25 08:12 03/06/25 08:12 03/06/25 08:12
I&O
03/05/25 03/06/25 03/07/25
06:59 06:59 06:59
Intake Total 2600 / 2600
Output Total 360 / 360 400 / 400
Balance 2240 / 2240 -400 / -400
Physical Exam
Physical Exam
HEENT: Anicteric and Moist mucous membranes
Cardiology: Normal Sinus Rhythm
Pulmonary: Clear
GI: Soft, Non Distended and Non Tender
Extremities: No Edema
Neuro: Non Focal
[2025-03-06 15:29] VITALS: BP 115/74
[2025-03-06] MEDS: NSS IV (16:21)
--- NOTE | 2025-03-06 16:36 | W.PN.HOSP.TC ---
Addendum entered and electronically signed by Suresh Qureshi MD 03/06/25 22:37:
Attending Addendum:
I saw and evaluated the patient. I reviewed the resident�s note and agree with findings and plan as documented in the resident�s note. Sub: ольга PO nausea resolved with meds. no further vomiting. Full 12 point ROS reviewed and negative except as
documented Exam: Vitals reviewed in chart GEN-NAD heart RRR No MRG lungs clear abd soft LE no edema
Plan:
# HEG concern for Meenu-Marroquin tear
# 6 weeks
-OB input appreciated
-GI input appreciated no indication for EGD, DC protonix
-likely exacerbated by abrupt DC of antidepressants
-resolved sxs
-thiamine IV x 1
-US of pelvis 03/05-Single, viable intrauterine with estimated gestational age of 6 week 4 day. heart rate: 106 BPM. Small subchorionic hematoma.
# Leukocytosis likely reactive
- resolved
#hxt of heart murmur
-physiological flow murmur
- ECHO-
1. Normal left ventricular size and systolic function without regional wall motion abnormalities. Estimated left ventricular ejection fraction is 68%.
2. Normal right ventricular size and systolic function.
3. Mild aortic regurgitation.
4. Trace mitral, tricuspid and pulmonic regurgitation.
5. No pericardial effusion.
#prolonged QTC
-recheck QTC stable 491
-avoid QTc prolonging meds if able-risks vs benefits due to
#depression/anxiety
-restart fluoxetine and bupropion kendal
-
#DVT prophylaxis
-scd
#CODE status
-full code
Dispo DC home
Time spent coordinating care, DC planning, review of DC plan of care with resident, transition of care, review of records, med rec/scripts sent electronically, consults, notes, d/w consultants, nursing, and CM�32 mins >50% of this time was devoted
to counseling and coordination of care
Original Note:
Today's Communication/Plan
-
Vomiting improved today , she is stable with no other symptoms
Protonix and Reglan stopped at discharged
GI consulted and no further test or procedure needed
Ob consulted , recc follow up as an out patient for care visits and for small subchorionic hematoma found in US of the abd
Discharged today
Assessment / Plan
Assessment / Plan
Pt is a 24yo with hx depression/anxiety, PTSD, prior note murmur and currently 6 weeks with intractable nausea and vomiting for the last one and half week ago and presents to ER for evaluation. She was noted with blood tinged emesis and
asked to see for evaluation. She was given Diclegis but stopped. She states she had been struggling with nausea and vomiting symptoms. She attempted to to eat rice and initially vomited rice and bile then noted about 2 teaspoon of blood without
recurrence. She also admits to constant upper abdominal pain with nausea symptoms without recent NSAID use and constipation as she has been eating less. Prior to she was using Nicotine and Marijuana daily with hx PTSD and did stop
last week. She otherwise denies odynophagia, dysphagia,diarrhea or rectal bleeding. She denies any chronic GI issues. No hx EGD or colonoscopy in past. She has not seen SHIFT COORDINATOR yet as due to March for first visit.
Plan:
#Hyperemesis Gravidum
-improved
-pt back on her home dose bupropion/fluoxetine -- abrupt discontinuation likely contributing to presenting sx
-received Zofran, Reglan , B6 prn
-IV fluids
-tolerated oral diet
-GI reccs diet with small portion, plenty of non caffeinated beverages
#Hematemesis
Resolved
Etiology of hematemesis related to MW tear with recurrent vomiting vs other
-started on IV Protonix
GI consulted recc hold on EGD as no recurrent vomiting or hematemesis
#QTC prolongation, secondary to antiemetics/SSRIs
Echocardiogram 03/05/2025
1. Normal left ventricular size and systolic function without regional wall motion abnormalities. Estimated left ventricular ejection fraction is 68%.
2. Normal right ventricular size and systolic function.
3. Mild aortic regurgitation.
4. Trace mitral, tricuspid and pulmonic regurgitation.
5. No pericardial effusion.
6. No prior echocardiogram available for comparison.
#
6 weeks gestation and 4 days per abd US
SHIFT COORDINATOR follow up as an outpatient for review with US with small subchorionic hematoma
#Anemia , mild
Low Hb 11.7 dropped from 14.2
Likely dilution with hydration of 2.5 liter given on admission, no signs of active bleeding
#Depression/ anxiety
pt back on her home dose bupropion/fluoxetine -- abrupt discontinuation likely contributing to presenting sx
DVT -Lovenox
Code status -Full code
Anticipated Discharge: Today
Subjective/Interval History
-
Date of Service: March 06, 2025
She had nausea this morning without vomiting even after Zofran , her nausea improved after she received Reglan med. She denied shortness of breath, chest pain , abd pain, palpitation and she was able to tolerant her oral diet.
Objective Data
-
Labs:
Laboratory Results
03/06/25
07:07
WBC 8.6
Hgb 11.7 L
Hct 35.0 L
Plt Count 269 D
Sodium 135
Potassium 3.5
Chloride 104
Carbon Dioxide 20 L
BUN 4 L
Creatinine 0.4 L
Glucose 80
Calcium 9.0
Vital Signs:
Vital Signs
Temp Pulse Resp BP Pulse Ox
97.6 F 92 18 115/74 99
03/06/25 15:29 03/06/25 15:29 03/06/25 15:29 03/06/25 15:29 03/06/25 15:29
I&O
03/05/25 03/06/25 03/07/25
06:59 06:59 06:59
Intake Total 2600 / 2600
Output Total 360 / 360 400 / 400
Balance 2240 / 2240 -400 / -400
Review of Systems
-
History Source: Patient
Constitutional: Reports No Symptoms
Respiratory: Reports No Symptoms
Cardiac: Reports No Symptoms
Abdomen/GI: Reports Nausea
Genitourinary: Reports No Symptoms
Musculoskeletal: Reports No Symptoms
Neuro: Reports No Symptoms
Physical Exam
-
General: Well Developed, Well Nourished and No Apparent Distress
HEENT: Normocephalic, Atraumatic and Moist Mucous Membranes
Respiratory: Clear to Auscultation
Cardiac: Regular Rhythm and S1/S2
GI: Soft, Nontender, Nondistended and Normal Bowel Sounds
Musculoskeletal: No Cyanosis and No Edema
Skin: Warm
Neuro: Awake, Alert and Oriented
Psych: Calm
== END 2025-03-06 17:25 | disposition home or self-care (01) ==
LOC: 1 ACUTE 12:53
PROVIDERS: Obstetrics & Gynecology; Physician Assistant; Registered Nurse; Specialist Research Data Abstracter/Coder; ADMITTING PHYSICIAN Internal Medicine; ATTENDING PHYSICIAN Family Medicine; CONSULT PHYSICIAN Obstetrics & Gynecology; EMERGENCY PHYSICIAN Emergency Medicine; OTHER PHYSICIAN Internal Medicine
DX: O21.1 Hyperemesis gravidarum with metabolic disturbance (principal); Z3A.01 Less than 8 weeks gestation of pregnancy; D72.829 Elevated white blood cell count, unspecified; O99.111 Other diseases of the blood and blood-forming organs and certain disorders involving the immune mechanism complicating pregnancy, first trimester; F41.9 Anxiety disorder, unspecified; F32.A Depression, unspecified; O99.341 Other mental disorders complicating pregnancy, first trimester; O20.8 Other hemorrhage in early pregnancy; O99.611 Diseases of the digestive system complicating pregnancy, first trimester; K92.0 Hematemesis; F90.9 Attention-deficit hyperactivity disorder, unspecified type; I49.8 Other specified cardiac arrhythmias; F17.290 Nicotine dependence, other tobacco product, uncomplicated; F43.10 Post-traumatic stress disorder, unspecified; O99.011 Anemia complicating pregnancy, first trimester; O99.331 Smoking (tobacco) complicating pregnancy, first trimester; O99.411 Diseases of the circulatory system complicating pregnancy, first trimester; O9A.211 Injury, poisoning and certain other consequences of external causes complicating pregnancy, first trimester; T43.206A Underdosing of unspecified antidepressants, initial encounter; Z79.899 Other long term (current) drug therapy; Z83.79 Family history of other diseases of the digestive system; Z91.128 Patient's intentional underdosing of medication regimen for other reason
CPT/HCPCS: 71046; 76801; 80048; 80053; 81003; 81015; 81025; 83735; 85027; 93005; 93306; 96361; 96372; 96374; 96375; 99285; G0378

== ENCOUNTER 2025-03-14 16:02 | Emergency (ER) | payer BC, SELFPAY ==
[2025-03-14] VITALS (7 sets, daily range): BP systolic 106–129; BP diastolic 67–85; BMI 23.1
[2025-03-14 16:36] LABS: Hematocrit 35.7 % (37.0-47.0); Hemoglobin 12.0 g/dL (12.0-16.0); Mean Corp Hgb Conc. 33.6 g/dL (33.0-37.0); Mean Corpuscular Volume 80.2 fL (81.0-99.0); Nucleated Red Blood Cells % 0 %; Platelet Count 328 10^3/uL (130-400); Red Cell Dist. Width 13.7 % (11.5-14.5)
[2025-03-14 16:49] LABS: ALT (SGPT) 13 U/L (0-35); AST (SGOT) 25 U/L (14-36); Albumin 4.4 g/dl (3.5-5.0); Alkaline Phosphatase 46 U/L (38-126); Blood Urea Nitrogen 4 mg/dl (7-17); Calcium 9.0 mg/dl (8.4-10.2); Carbon Dioxide 24 mmol/L (22-30); Chloride 99 mmol/L (98-107); Glucose 90 mg/dl (70-99); Potassium 3.8 mmol/L (3.5-5.1); Sodium 132 mmol/L (135-145); Total Protein 6.9 g/dl (6.3-8.2); eGFR > 60.00
--- NOTE | 2025-03-14 19:27 | ED.GENMED ---
History of Present Illness
General
Chief Complaint: Abdominal Pain
Time Seen by Provider: 03/14/25 19:09
History of Present Illness
History of Present Illness:
Patient is a 24-year-old woman 8 weeks presenting to the emergency department with abdominal pain nausea vomiting. Per chart review patient was discharged on March 09 after being admitted for hyperemesis and a Meenu-Marroquin tear.
At that time was seen by both GI and FIFTH GRADE TEACHER. Was discharged on Zofran given stable QTc. Patient states that she was feeling well up until today. She had 4 episodes of emesis. Last emesis was 4 hours ago. She did have blood in it. It was bright
red initially then it turned black. She states it is 4 tablespoons. No changes in her bowel movement. No blood in her stool. She does have a burning sensation in her epigastric region. She also developed some vague lower abdominal pain. No
vaginal bleeding or discharge. No lightheadedness dizziness. No URI symptoms. No fevers or chills. She has been taking Diclegis. She did try Zofran at home though unfortunately vomited it
Phy Exam
Physical Exam
Physical Exam:
GENERAL: in no acute distress
HEENT: normocephalic, extraocular movements intact, dry oral mucosa
NECK: normal inspection
RESPIRATORY: no respiratory distress, clear to auscultation bilaterally
CARDIOVASCULAR: regular rate and rhythm
ABDOMEN/: soft, non-distended, non-tender to palpation, no rebound or guarding
EXTREMITIES: non-tender, no edema/swelling
NEUROLOGIC: awake and alert, moves all extremities
SKIN: warm
Course
Orders/Labs/Results
Orders:
Orders
03/14/25 16:23
CBC/With Diff [Complete Blood Count/With Diff] Urgent
CMP [Comprehensive Metabolic Panel] Urgent
03/14/25 19:18
Electrocardiogram (*1) Urgent
Reason for Study: QTc Monitoring
EKG- Treatment ONCE
03/14/25 19:26
0.9% Sodium Chloride 1000 ml [Nss] 1,000 ml IV BOLUS
Pantoprazole [Protonix IV] 40 mg IV NOW STA
US 1st Trimester Urgent
Reason For Exam: lower abdominal pain
03/14/25 22:12
Famotidine [Pepcid] 40 mg PO NOW STA
Abnormal Lab Results
03/14/25
16:23
WBC 14.8 H 10^3/uL
(4.8-10.8)
Hct 35.7 L %
(37.0-47.0)
MCV 80.2 L fL
(81.0-99.0)
Absolute Neuts (auto) 12.3 H 10^3/uL
(1.4-6.5)
Absolute Monos (auto) 0.8 H 10^3/uL
(0.1-0.6)
Neutrophils % 83.0 H %
(42.2-75.2)
Lymphocytes % 10.0 L %
(20.5-51.1)
Sodium 132 L mmol/L
(135-145)
BUN 4 L mg/dl
(7-17)
Creatinine 0.4 L mg/dL
(0.6-1.0)
03/14/25 16:23
03/14/25 16:23
Vital Signs
Initial and Last Documented VS:
Initial Vital Signs
Temp Pulse Resp BP Pulse Ox
98.3 F 74 14 122/85 96
03/14/25 16:10 03/14/25 16:10 03/14/25 16:10 03/14/25 16:10 03/14/25 16:10
Last Documented Vital Signs
Temp Pulse Resp BP Pulse Ox
98.4 F 92 18 125/79 96
03/14/25 18:59 03/14/25 20:30 03/14/25 18:52 03/14/25 20:00 03/14/25 20:30
MDM/Problems Addressed
Differential Diagnosis Includes:
Patient is a 24-year-old 8 weeks presenting to the emergency department with vomiting and abdominal pain. On arrival vitals are unremarkable and exam does show dry oral mucosa. Her abdomen is benign. Differential consist of
hyperemesis versus Meenu-Marroquin tear versus esophagitis. Blood work obtained prior to evaluation does show leukocytosis. Could be stress response. Hemoglobin is stable. Will recheck QTc before giving antiemetics. Will give fluids. Will also
give Protonix given the burning sensation. Will also obtain a pelvic ultrasound to evaluate fetus.
*Pulse Oximetry
SaO2: 95
Oxygen Mode of Delivery: Room air
Patient hypoxic: no
*Critical Care Note
Total Time (30-74mins, 75-104mins- exclusive of procedures): Not Applicable
Update Note
Update Note:
On reevaluation patient is resting comfortably. She is tolerating p.o. without any recurrent symptoms. Pelvic ultrasound with no new changes. Patient's pain has improved after Protonix and Pepcid. Will discharge patient at this time. Strict
return precautions given
ED Attending Note
-
Portions of this chart may have been created with voice recognition software.� Occasional wrong word or��sound alike� substitutions may have occurred due to the inherent limitations of voice recognition software.
Discharge Plan
Departure
Patient Disposition: Home (Routine Discharge)
Date of Disposition: 03/14/25
Time of Disposition: 22:53
Patient with high blood pressure during this ER visit?: No
Discharge Problem:
Hyperemesis gravidarum, Meenu-Marroquin tear
Instructions: Hyperemesis Gravidarum (DC)
Prescriptions:
No Action
doxylamine-pyridoxine (vit B6) [Diclegis] 10-10 mg tablet,delayed release (DR/EC)
2 tab PO HS Qty: 60 0RF
fluoxetine 40 mg Capsule
40 mg PO DAILY
methylphenidate HCl 27 mg Tablet Extended Release 24hr
27 mg PO DAILY
bupropion HCl 150 mg Tablet Extended Release 24 Hr
150 mg PO DAILY
ondansetron 4 mg Tablet,Disintegrating
4 mg PO Q8H PRN (Reason: nausea)
ondansetron 4 mg tablet,disintegrating
4 mg PO Q8H PRN (Reason: nausea and vomiting) Qty: 14 0RF
Referrals:
NONE,* [Family Provider, Internal Medicine]
Activity Restrictions/Additional Instructions:
Thank You for choosing [facility].
It was a pleasure meeting you and taking part in your care.
You were seen in the Emergency Department today for vomiting. While you were here we performed blood work, which was reassuring.
You were also evaluated in the Emergency Department today for epigastric pain, which is most likely due to irritation of the lining of your stomach. Your symptoms improved with medication in the ED. You can take Pepcid, Prilosec, which is available
over the counter, to help manage your symptoms. Avoid spicy or acidic foods.
Please follow up with your primary care physician within two days.
Return to the Emergency Department if you experience shortness of breath, worsening or uncontrolled abdominal or chest pain, headache, light headedness, feeling faint, nausea, vomiting, bloody vomit or stools, black tarry stools, or any other
concerning symptoms.
We would like for you to follow up with your primary care physician for further evaluation. If you experience fever, worsening of your symptoms, or develop any other new or concerning symptoms, please return to the Emergency Department immediately.
Please see the attached sheet for additional information.
Interventions
Interventions:
*General Assessment Last Done: 03/14/25 16:10
*Neglect/Abuse Screening Last Done: 03/14/25 16:10
*ED COVID-19 Vaccine History Last Done: 03/14/25 16:10
*ED Influenza Vaccine History Last Done: 03/14/25 16:10
[facility] Risk Assessment Tool Last Done: 03/14/25 19:10
*Risk Screen - Suicide (C-SSRS) Last Done: 03/14/25 16:10
[facility]-Nxbtcm-Tigyjbfaff Assessment Last Done: 03/14/25 18:54
Discharge Date and Time
Print Language: NIGERIAN
[2025-03-14] MEDS: NSS 1000 IV (19:47)
[2025-03-14] MEDS: PROTONIX IV 40 MG IV (19:54)
[2025-03-14] MEDS: PEPCID 40 MG PO (22:32)
== END 2025-03-14 23:18 | disposition home or self-care (01) ==
LOC: EMR 16:02
PROVIDERS: Emergency Medicine; EMERGENCY PHYSICIAN Student in an Organized Health Care Education/Training Program
DX: O21.0 Mild hyperemesis gravidarum (principal); K22.6 Gastro-esophageal laceration-hemorrhage syndrome; Z3A.08 8 weeks gestation of pregnancy
CPT/HCPCS: 99284; 96374; 96361; 76801; 80053; 85025; 93005